=== PATIENT | female | born 1965 | race Caucasian/White ===

== ENCOUNTER 2019-06-18 12:06 | Emergency (ER) | payer OTHER ==
[2019-06-18 12:11] VITALS: BP 178/77; PULSE 74; RESP 18; TEMP 98.3
--- NOTE | 2019-06-18 12:52 | XR ---
EXAMINATION TYPE: XR wrist complete LT DATE OF EXAM: 06/18/2019 COMPARISON: None HISTORY: Fall, pain TECHNIQUE: 4 view left wrist FINDINGS: Soft tissues are normal. Joint spaces are preserved. No acute fracture or dislocation is ev ident. Follow-up exam can be performed 7-10 days from acute trauma for continued pain. If there is pain at t he anatomic snuff box, nuclear medicine bone scan could be performed for additional evaluation. IMPRESSION: 1. Normal 4 view left wrist
--- NOTE | 2019-06-18 12:53 | XR ---
EXAMINATION TYPE: XR hand complete LT DATE OF EXAM: 06/18/2019 COMPARISON: None HISTORY: Fall, pain TECHNIQUE: Three-view left hand FINDINGS: No acute fractures are evident. Joint spaces are preserved. Soft tissues are within normal limits. IMPRESSIONS: 1. No acute osseous abnormality left hand
--- NOTE | 2019-06-18 13:13 | ED ---
Upper Extremity HPI - General Chief Complaint: Extremity Injury, Upper Stated Complaint: Fall-Wrist Injury Time Seen by Provider: 06/18/19 12:27 Source: patient, RN notes reviewed Mode of arrival: ambulatory Limitations: no limitations - History of Present Illness Initial Comments: 54-year-old female presents emergency Department chief complaint of fall, left wrist pain. Patient states she tripped over a cord falling onto concrete. Patient is right-hand dominant. Denies any head injury. Patient states her left wrist is painful and swollen. Denies any prior injuries including fractures. Patient offers no other complaints. - Related Data Allergies Allergy/AdvReac Type Severity Reaction Status Date / Time Penicillins Allergy Unknown Verified 06/18/19 12:11 Childhood codeine AdvReac Abdominal Verified 06/18/19 12:11 Pain Review of Systems ROS Statement: Those systems with pertinent positive or pertinent negative responses have been documented in the HPI. ROS Other: All systems not noted in ROS Statement are negative. Past Medical History Past Medical History: Coronary Artery Disease (CAD), Diabetes Mellitus, Hypertension History of Any Multi-Drug Resistant Organisms: None Reported Past Surgical History: Hysterectomy Past Psychological History: Bipolar Smoking Status: Never smoker Past Alcohol Use History: None Reported Past Drug Use History: None Reported General Exam Limitations: no limitations General appearance: alert, in no apparent distress Head exam: Present: atraumatic, normocephalic, normal inspection Eye exam: Present: normal appearance, PERRL, EOMI. Absent: scleral icterus, conjunctival injection, periorbital swelling Respiratory exam: Present: normal lung sounds bilaterally. Absent: respiratory distress, wheezes, rales, rhonchi, stridor Cardiovascular Exam: Present: regular rate, normal rhythm, normal heart sounds. Absent: systolic murmur, diastolic murmur, rubs, gallop, clicks Extremities exam: Present: other (Left wrist is swollen, tender to palpation there is no snuffbox tenderness there is mild mid hand tenderness neurovascular intact, no proximal forearm tenderness) Course Vital Signs 06/18/19 12:09 Temperature 98.3 F Pulse Rate 74 Respiratory 18 Rate Blood Pressure 178/77 O2 Sat by Pulse 97 Oximetry Medical Decision Making - Medical Decision Making 54-year-old female presented for fall, left wrist injury. X-rays obtained no acute fracture. Patient left wrist sprain. - Radiology Data Radiology results: report reviewed, image reviewed X-ray of the hand and wrist left no acute fracture. Disposition Clinical Impression: Fall, Left wrist sprain Disposition: HOME SELF-CARE Condition: Stable Instructions (If sedation given, give patient instructions): Wrist Injury (ED) Additional Instructions: Please return to the Emergency Department if symptoms worsen or any other concerns. Is patient prescribed a controlled substance at d/c from ED?: No Referrals: Rosemarie Bradford DO [Primary Care Provider] - 1-2 days Nando Vasquez DO [Medical Doctor] - 1-2 days Time of Disposition: 13:12
== END 2019-06-18 13:24 | disposition home or self-care (01) ==
LOC: EC 12:06
DX: S63.502A Unspecified sprain of left wrist, initial encounter (principal); Z88.0 Allergy status to penicillin; Z88.5 Allergy status to narcotic agent; W01.0XXA Fall on same level from slipping, tripping and stumbling without subsequent striking against object, initial encounter
CPT/HCPCS: 99283

== ENCOUNTER → 2023-02-28 | Outpatient (CLI) | payer OTHER ==
[2023-02-28 16:25] LABS: Basophils # (A) 0.05 X 10*3/uL (0.00-0.10); Basophils % (A) 1.3 %; Eosinophils # (A) 0.11 X 10*3/uL (0.04-0.35); Eosinophils % (A) 2.8 %; HCT 33.8 % (37.2-46.3); HGB 10.6 g/dL (12.0-15.0); Immature Grans, Automated 0.3 %; Lymphocytes # (A) 0.87 X 10*3/uL (0.90-5.00); MCHC 31.4 g/dL (32.0-37.0); MCV 76.5 fL (80.0-97.0); Mean Platelet Volume 9.8 fL (9.5-12.2); Monocytes % (A) 7.6 %; NRBC Per 100 WBC 0 /100 WBCS (0.0-0.0); Neutrophils # (A) 2.61 X 10*3/uL (1.80-7.70); Platelet Count 225 X 10*3/uL (140-440); RBC 4.42 X 10*6/uL (4.10-5.20); RDW 14.6 % (11.5-14.5); WBC 3.95 X 10*3/uL (4.50-10.00)
[2023-02-28 17:13] LABS: African American GFR (CKD) 81.1 (60.0-200.0); Albumin 4.6 g/dL (3.8-4.9); Albumin/Globulin Ratio 1.84 (1.60-3.17); Anion Gap 14.7 mmol/L (10.00-18.00); BUN/Creat Ratio 33.22 Ratio (12.00-20.00); Blood Urea Nitrogen 29.9 mg/dL (9.0-27.0); Carbon Dioxide 26.3 mmol/L (20.0-27.5); Globulin 2.5 g/dL (1.6-3.3); HDL Cholesterol 26.5 mg/dL (40.00-60.00); T4, Free (Free Thyroxine) 1.44 ng/dL (0.800-1.800); Total Bilirubin 0.3 mg/dL (0.30-1.20); Total Protein 7.1 g/dL (6.2-8.2)
[2023-02-28 17:23] LABS: Chol/HDL Ratio 6.45 Ratio; LDL Cholesterol,Direct Reflex 70.8 mg/dL (0.00-129.00)
[2023-02-28 18:48] LABS: Urine Creatinine 60.4 mg/dL (28.0-217.0)
== END | disposition home or self-care (01) ==
LOC: LABWHC1 08:24
PROVIDERS: ATTEND Internal Medicine Endocrinology, Diabetes & Metabolism
DX: I25.10 Atherosclerotic heart disease of native coronary artery without angina pectoris (principal); E11.8 Type 2 diabetes mellitus with unspecified complications; E11.65 Type 2 diabetes mellitus with hyperglycemia; E78.2 Mixed hyperlipidemia; E55.9 Vitamin D deficiency, unspecified; M13.0 Polyarthritis, unspecified; Z79.899 Other long term (current) drug therapy
CPT/HCPCS: 36415; 80053; 80061; 82043; 82306; 82570; 83036; 83721; 84439; 84443; 85025